=== PATIENT | female | born 1950 | race Caucasian/White ===

== ENCOUNTER 2016-12-30 10:31 | Inpatient (IN) | payer MEDICARE, OTHER ==
[~2016-12-30] VITALS: Ht 158.8 cm; Wt 84.6 kg
[2016-12-30 11:58] LABS: HEMATOCRIT 27.9 % (36.0-48.0); HEMOGLOBIN 8.5 g/dL (12-16); MCH 30.2 pg (26.0-34.0); MCHC 30.5 g/dL (31.0-37.0); MCV 99.3 fL (80.0-100.0); MEAN PLATELET VOLUME 12.1 fL (7.4-10.4); PLATELET COUNT 65 10x3/uL (130-400); RBC 2.81 10x6/uL (4.00-5.40); WBC 25.2 10x3/uL (4.8-10.8)
[2016-12-30 12:06] LABS: APTT 23.4 SECONDS (22.8-39.4); INR 1.13 (0.85-1.17); PROTIME 14.4 SECONDS (11.6-15.0)
[2016-12-30 12:16] LABS: ALBUMIN 2.3 g/dL (3.4-5.0); ALKALINE PHOSPHATASE 219 U/L (46-116); ALT (SGPT) 37 U/L (10-68); BILIRUBIN - TOTAL 0.26 mg/dL (0.2-1.3); CALC OSMOLALITY 312 mosm/kg (275-300); CALCIUM 9.3 mg/dL (8.5-10.1); CARBON DIOXIDE 23.2 mmol/L (21.0-32.0); CHLORIDE - SERUM 115 mmol/L (98-107); CREATININE - SERUM 0.9 mg/dL (0.6-1.3); GLUCOSE 85 mg/dL (74-106); POTASSIUM - SERUM 4.7 mmol/L (3.5-5.1); PROTEIN - SERUM 6.5 g/dL (6.4-8.2); SODIUM 154 mmol/L (136-145); UREA NITROGEN 37 mg/dL (7-18); eGFR NON AFRICAN AMERICAN 66 mL/min (90-120)
[2016-12-30 12:19] LABS: TROPONIN-I < 0.017 ng/mL (0.000-0.060)
[2016-12-30 12:37] LABS: EOSINOPHILS 1 % (0-7); LYMPHOCYTES 26 % (15-50); MONOCYTES 2 % (2-11); NEUTROPHILS 53 % (40-80); PLATELET ESTIMATE DECREASED; POLYCHROMASIA OCC
[2016-12-30 17:30] LABS: FERRITIN 3621 ng/mL (3-244)
--- NOTE | 2016-12-30 17:30 | NUR ---
RECEIVED TO ROOM FROM 2221 VIA . ORIENTED TO ROOM 2222 FROM , CALL LIGHT IN REACH.
[2016-12-30 17:44] LABS: LDH 463 U/L (81-234)
[2016-12-30] MEDS ORDERED: DYAZIDE 37.5/251 CAP PO (18:15)
[2016-12-30] MEDS ORDERED: PROZAC20 MG PO (18:15)
[2016-12-30] MEDS ORDERED: BENICAR HCT 40-1 TA1 PO (18:15)
--- NOTE | 2016-12-30 18:33 | NUR ---
NS INITIATED @ 50 CC/GR VIA PUMP. IS GIVEN TO PATIENT AND EXPLAINED USE WITH RETURN DEMONSTRATION. FAMILY IM ROOM. WILL CONTINUE WITH PLAN OF CARE.
[2016-12-30 18:47] VITALS: BP 119/75; BMI 33.3
[2016-12-30 20:00] VITALS: BP 128/68
[2016-12-31] VITALS (14 sets, daily range): BP systolic 98–142; BP diastolic 42–76; Ht 158.8 cm; Wt 84.6 kg
[2016-12-31 03:03] LABS: APPEARANCE CLEAR (CLEAR); BILIRUBIN NEGATIVE (NEGATIVE); COLOR YELLOW (YELLOW); GLUCOSE NEGATIVE (NEGATIVE); KETONE NEGATIVE (NEGATIVE); LEUKOCYTE ESTERASE NEGATIVE (NEGATIVE); NITRITE NEGATIVE (NEGATIVE); PROTEIN NEGATIVE (NEGATIVE); UROBILINOGEN NORMAL (NORMAL)
[2016-12-31 06:38] LABS: ALBUMIN 1.9 g/dL (3.4-5.0); ANION GAP 14.1 mmol/L (8-16); BILIRUBIN - TOTAL 0.3 mg/dL (0.2-1.3); CALCIUM 9.4 mg/dL (8.5-10.1); CARBON DIOXIDE 25.1 mmol/L (21.0-32.0); POTASSIUM - SERUM 4.2 mmol/L (3.5-5.1); PROTEIN - SERUM 6.4 g/dL (6.4-8.2)
[2016-12-31 06:54] LABS: RBC 2.33 10x6/uL (4.00-5.40); WBC 24.3 10x3/uL (4.8-10.8)
[2016-12-31 07:03] LABS: HEMATOCRIT 22.9 % (36.0-48.0); HEMOGLOBIN 7.1 g/dL (12-16); MCH 30.5 pg (26.0-34.0); MCV 98.3 fL (80.0-100.0); MEAN PLATELET VOLUME 10.8 fL (7.4-10.4); PLATELET COUNT 62 10x3/uL (130-400)
--- NOTE | 2016-12-31 07:15 | NUR ---
REPORT RECEIVED FROM CHASER TAR NURSE. CALL LIGHT IN REACH.
[2016-12-31 07:32] LABS: EOSINOPHILS 1 % (0-7); LYMPHOCYTES 26 % (15-50); MONOCYTES 4 % (2-11); NEUTROPHILS 34 % (40-80)
--- NOTE | 2016-12-31 08:00 | NUR ---
LYING IN BED,WITHOUT DISTRESS.DENIES NEEDS.CALL LIGHT IN REACH
--- NOTE | 2016-12-31 08:13 | NUR ---
ASSESSMENT COMPLETED. SCDs TO BLE. SON IN ROOM. DR. MODI PAGED ABOUT CRITICAL HGB. CALL LIGHT IN REACH. WILL CONTINUE WITH PLAN OF CARE.
[2016-12-31 08:19] LABS: PLATELET ESTIMATE DECREASED
--- NOTE | 2016-12-31 08:19 | NUR ---
SPOKE WITH DR. MODI. NEW ORDERS RECEIVED FOR PRBX. DR. STONE IN ROOM TO ASSESS PATIENT.
--- NOTE | 2016-12-31 09:17 | NUR ---
Patient Name: DOC MONZON Admission Status: ER Accout number: [id number] Admission Date: 12-30-2016 : 1950 Admission Diagnosis: Attending: SABRINA Current LOS: 1 Anticipated DC Date: 01-04-2017 Planned Disposition: Home Primary Insurance: MEDICARE A & B Discharge Planning Comments: CM MET WITH PATIENT AND SON (BELKYS) REGARDING D/C NEEDS AND MEDS. PATIENT STATED SHE LIVES ALONE AND HER SON WILL DRIVE HER HOME AT DISCHARGE. PATIENTS SON STATED THERE ARE 3 STEPS W/O RAILS TO ENTER HOME AND NO STAIRS INSIDE. PATIENT IS INDEPENDENT WITH HER CARE AND HAS NO DME AT HOME. PATIENTS PCP IS DR. LIMON AND PHARMACY IS [facility]. PATIENT HAS NOT HAD HOME HEALTH NOR DOES SHE THINK SHE NEEDS IT. CM WILL CONTINUE TO FOLLOW PATIENT WITH D/C NEEDS AND PLANS. PCP DR. BRAXTON [facility]- [phone] BELKYS (SON) [phone] OR [phone] Ground Crewman Aircraft Support: Tonia Wilcox Is the patient Alert and Oriented? Yes 0 * How many steps to enter\exit or inside your home? 3 W/O RAIL 0 * PCP DR. LIMON 0 * Pharmacy [facility] 0 * Preadmission Environment Home Alone 0 * ADLs Independent 0 * Equipment None 0 * List name and contact numbers for known caregivers / representatives who currently or will assist patient after discharge: BELKYS MONZON (SON) [phone] 0 * Community resources currently utilized None 0 * Additional services required to return to the preadmission environment? Yes 0 * Can the patient safely return to the preadmission environment? Yes 0 * Has this patient been hospitalized within the prior 30 days at any hospital? Yes 0 Grand Total: 0
--- NOTE | 2016-12-31 10:20 | NUR ---
NO NEEDS VOICED AT THIS TIME. CALL LIGHT IN REACH.
--- NOTE | 2016-12-31 11:40 | NUR ---
BLAYNE GOSS. CONSENT FOR BLOOD SIGNED AND WITNESSED.
--- NOTE | 2016-12-31 12:20 | NUR ---
PRBC UNIT 1 INITIATED PER JUAN CARLOS LARA. VS STANL. IV SITE PATENT. SONS IN ROOM AT THIS TIME. CALL LIGHT IN REACH. NO NEEDS VOICED.
--- NOTE | 2016-12-31 15:15 | NUR ---
1ST UNIT OF BLOOD COMPLETED. VSS. WAITING ON MRI TO GET COMPLETED SO 2ND UNIT CAN GET STARTED.
--- NOTE | 2016-12-31 17:00 | NUR ---
TO MRI VIA WC. WILL FINISH IV ABX AND START 2ND UNIT OF BLOOD WHEN SHE RETURNS.
--- NOTE | 2016-12-31 18:54 | NUR ---
NO CHANGES IN INITIAL ASSESSMENT. CALL LIGHT IN REACH. WILL CONTINUE WITH PLAN OF CARE.
--- NOTE | 2016-12-31 20:40 | NUR ---
IV TO RIGHT AC OUT WITH TIP INTACT. RESITED TO RIGHT HAND WITH 22 GA X1 STICK. PRBC UNIT 2 INITIATED @ 125 CC/HR VIA PUMP.
--- NOTE | 2016-12-31 23:47 | NUR ---
PATIENT FINISHED SECOND UNIT OF BLOOD FOR THE DAY. FEVER STARTED AT 100.1 AND 650MG OF TYLENOL GIVEN. ENDING TEMP WAS 99.9 WITH THE HIGHEST TEMP BEING 100.5. COOL, WET CLOTH WAS APPLIED TO THE FOREHEAD AND ICE PACKS TO THE GROIN AREA. LUNGS REMAINED CLEAR WITH NO OTHER S/S OF REACTION TO TRANSFUSION. PRBC'S INFUSED AT A RATE OF 100mL/hr. SON AT BEDSIDE. NO NEEDS WERE NOTED BY THE PAITENT OR FAMILY.
[2017-01-01] VITALS: BP 115/73
--- NOTE | 2017-01-01 03:44 | NUR ---
PATIENT SLEEPING SUPINE IN BED. HOB 30 DEGREES. RR EVEN AND UNLABORED. 0 S/S OF DISTRESS. SCD'S IN ROOM BUT OFF. SRX2. FAMILY AT BEDSIDE.
[2017-01-01 04:00] VITALS: BP 115/70
[2017-01-01 05:46] LABS: BASOPHILS 2.6 % (0-2); EOSINOPHILS 1.4 % (0-7); HEMATOCRIT 29.6 % (36.0-48.0); HEMOGLOBIN 9.5 g/dL (12-16); IMMATURE GRANULOCYTES 18.4 % (0-5); LYMPHOCYTES 28.1 % (15-50); MCH 29.6 pg (26.0-34.0); MCHC 32.1 g/dL (31.0-37.0); MCV 92.2 fL (80.0-100.0); MEAN PLATELET VOLUME 10.4 fL (7.4-10.4); MONOCYTES 9.9 % (2-11); NEUTROPHILS 39.6 % (40-80); PLATELET COUNT 54 10x3/uL (130-400); RBC 3.21 10x6/uL (4.00-5.40); RDW 19.5 % (11.5-14.5); WBC 23.1 10x3/uL (4.8-10.8)
[2017-01-01 06:31] LABS: ANION GAP 15.9 mmol/L (8-16); BILIRUBIN - TOTAL 0.6 mg/dL (0.2-1.3); CALCIUM 9.5 mg/dL (8.5-10.1); CARBON DIOXIDE 24.2 mmol/L (21.0-32.0); POTASSIUM - SERUM 4.1 mmol/L (3.5-5.1); PROTEIN - SERUM 6.7 g/dL (6.4-8.2)
--- NOTE | 2017-01-01 07:10 | NUR ---
REPORT RECEIVED FROM HYDRANT SETTER NURSE. CALL DIANNE IN REACH.
[2017-01-01 08:17] VITALS: BP 124/70
--- NOTE | 2017-01-01 09:20 | NUR ---
DR. HALEY IN ROOM TO ASSESS AND SPEAK WITH PATIENT.
--- NOTE | 2017-01-01 10:01 | NUR ---
ASSESSMENT COMPLETED. AM MEDS ADMINISTERED. SCDs TO BLE. SON AT BEDSIDE. CALL LIGHT IN REACH. WILL CONTINUE WITH PLAN OF CARE.
[2017-01-01 11:45] VITALS: BP 146/86
--- NOTE | 2017-01-01 12:55 | NUR ---
SONS IN ROOM. PATIENT DENIES PAIN OR NEEDS AT THIS TIME. CALL LIGHT IN REACH.
--- NOTE | 2017-01-01 13:05 | NUR ---
EXPLAINED TO SON ABOUT PLAN OF CARE. VERBALIZED UNDERSTANDING.
--- NOTE | 2017-01-01 15:04 | NUR ---
PATIENT IV TUBING DISCONNECTED SO PATIENT CAN GET IN SHOWER AT THIS TIME. NO COMPLAINTS. O2 ON FAMILY AND CERTIFIED RETINAL ANGIOGRAPHER AT BEDSIDE.
[2017-01-01 15:35] VITALS: BP 139/77
--- NOTE | 2017-01-01 17:38 | NUR ---
VIBRAMYCIN IVPB. SON AT BEDSIDE. CALL LIGHT IN REACH.
--- NOTE | 2017-01-01 18:47 | NUR ---
NO CHANGES IN INITIAL ASSESSMENT. SCDs TO BLE. SON IN ROOM. WILL CONTINUE WITH PLAN OF CARE.
[2017-01-01 20:00] VITALS: BP 141/83
[2017-01-02] VITALS: BP 138/81
[2017-01-02 04:00] VITALS: BP 146/84
--- NOTE | 2017-01-02 05:14 | NUR ---
SLEEPING AT THIS TIME. RESPIRATIONS EVEN AND NON LABORED. CALL LIGHT IN REACH, WILL CONTINUE WITH PLAN OF CARE.
[2017-01-02 05:49] LABS: BASOPHILS 1.7 % (0-2); EOSINOPHILS 0.9 % (0-7); HEMATOCRIT 31.6 % (36.0-48.0); IMMATURE GRANULOCYTES 14.5 % (0-5); LYMPHOCYTES 26.6 % (15-50); MCH 29.4 pg (26.0-34.0); MCHC 31.6 g/dL (31.0-37.0); MCV 92.9 fL (80.0-100.0); MEAN PLATELET VOLUME 10.5 fL (7.4-10.4); MONOCYTES 9.8 % (2-11); NEUTROPHILS 46.5 % (40-80); PLATELET COUNT 59 10x3/uL (130-400); RDW 18.8 % (11.5-14.5); WBC 25.3 10x3/uL (4.8-10.8)
[2017-01-02 06:21] LABS: ANION GAP 14.6 mmol/L (8-16); BILIRUBIN - TOTAL 0.71 mg/dL (0.2-1.3); CALCIUM 9.8 mg/dL (8.5-10.1); CARBON DIOXIDE 25.5 mmol/L (21.0-32.0); CREATININE - SERUM 0.9 mg/dL (0.6-1.3); POTASSIUM - SERUM 4.1 mmol/L (3.5-5.1); PROTEIN - SERUM 6.9 g/dL (6.4-8.2)
--- NOTE | 2017-01-02 07:00 | NUR ---
REPORT RECIEVED ASSUMED CARE. PATIENT IN BED WITH IV INTACT. RIGHT HAND WITH SMALL AMOUNT OF EDEMA. PATIENT STATED HER IV DOESNT HURT AND HER HAND HAS BEEN SWOLLEN. EXPLAINED TO PATIENT THAT I WOULD KEEP AN EYE ON IT AND IF I SAW IT WAS GETTING WORSE I WOULD HAVE TO RESTART IT. VERBALIZED UNDERSTANDING. CALL LIGHT WITHIN REACH. FAMILY AT BEDSIDE.
[2017-01-02 08:55] VITALS: BP 134/69
--- NOTE | 2017-01-02 09:00 | NUR ---
PATIENT IV INTACT. HAND WITH SOME EDEMA STILL BUT NOT ANY WORSE THAN BEFORE. WILL CONTINUE TO MONITOR. CALL LIGHT WITHIN REACH. FAMILY AT BEDSIDE.
--- NOTE | 2017-01-02 12:30 | NUR ---
PATIENT SITTING UP IN BED EATING WITH NO COMPLAINTS AT THIS TIME. IV INTACT. CALL LIGHT WITHIN REACH.
[2017-01-02 12:48] VITALS: BP 129/76
--- NOTE | 2017-01-02 15:01 | NUR ---
PATIENT RECIEVED MORPHINE 2 MG IVP SLOWLY OVER 2 MINUTES FOR PAIN. IV INTACT. CALL LIGHT WITHIN REACH.
[2017-01-02 17:35] VITALS: BP 118/79; BP 119/73
--- NOTE | 2017-01-02 17:50 | NUR ---
PATIENT FEELING ANXIOUS. HR 129. ATIVAN GIVEN PO AT THIS TIME. WILL CONTINUE TO MONITOR. TELE MONITOR ST AT 129. CALL LIGHT WITHIN REACH. FAMILY AT BEDSIDE.
--- NOTE | 2017-01-02 18:27 | NUR ---
PATIENT IN BED WITH IV INTACT. NO COMPLAINTS AT THIS TIME. FAMILY AT BEDSIDE. BSCDS ON AND WORKING. CALL LIGHT WITHIN REACH.
[2017-01-02 20:00] VITALS: BP 122/70
[2017-01-03] VITALS: BP 133/62
--- NOTE | 2017-01-03 02:00 | NUR ---
PT IN BED WITH NO DISTRESS. RESPIRATIONS EVEN AND UNLABORED. SIDE RAILS X 2. BED LOW. CALL LIGHT IN REACH.
[2017-01-03 04:00] VITALS: BP 123/75
[2017-01-03 06:26] LABS: BASOPHILS 0.8 % (0-2); EOSINOPHILS 0.8 % (0-7); HEMATOCRIT 30.6 % (36.0-48.0); HEMOGLOBIN 9.7 g/dL (12-16); IMMATURE GRANULOCYTES 11.1 % (0-5); LYMPHOCYTES 23.4 % (15-50); MCH 29.6 pg (26.0-34.0); MCHC 31.7 g/dL (31.0-37.0); MCV 93.3 fL (80.0-100.0); MEAN PLATELET VOLUME 10.6 fL (7.4-10.4); MONOCYTES 10.4 % (2-11); NEUTROPHILS 53.5 % (40-80); PLATELET COUNT 58 10x3/uL (130-400); RBC 3.28 10x6/uL (4.00-5.40); WBC 24.7 10x3/uL (4.8-10.8)
[2017-01-03 06:46] LABS: ALBUMIN 1.9 g/dL (3.4-5.0); ANION GAP 13.9 mmol/L (8-16); BILIRUBIN - TOTAL 0.82 mg/dL (0.2-1.3); CALCIUM 9.4 mg/dL (8.5-10.1); CARBON DIOXIDE 25.5 mmol/L (21.0-32.0); CREATININE - SERUM 0.9 mg/dL (0.6-1.3); POTASSIUM - SERUM 4.4 mmol/L (3.5-5.1); PROTEIN - SERUM 5.8 g/dL (6.4-8.2)
--- NOTE | 2017-01-03 08:00 | NUR ---
ASSESSMENT PER FLOW SHEET.PT WITHOUT DISTRESS.NPO FOR PROCEDURE TODAY.
[2017-01-03 08:33] VITALS: BP 103/71
--- NOTE | 2017-01-03 11:24 | NUR ---
TO IR VIA BED
[2017-01-03 13:11] VITALS: BP 116/77
[2017-01-03 16:14] VITALS: BP 114/71
--- NOTE | 2017-01-03 18:24 | NUR ---
REMAINS WITHOUT DISTRESS.CONT PLAN OF CARE
[2017-01-03 19:00] VITALS: BP 115/64
[2017-01-04] VITALS: BP 115/66
--- NOTE | 2017-01-04 03:10 | NUR ---
REC'D PATIENT SITTING UP IN BED. FAMILY WAS AT BEDSIDE. PATIENT ALERT AND ORIENTED X4. DENIED PAIN AT THIS TIME. DENIED FURTHER NEEDS AT THIS TIME. INTRUCTED TO CALL IF NEEDED ANYTHING VERBALIZED UNDERSTANDING. BED LOW, LOCKED, CALL LIGHT IN REACH. NO DISTRESS NOTED.
[2017-01-04 04:00] VITALS: BP 115/63
--- NOTE | 2017-01-04 04:15 | NUR ---
PATIENT SLEEPING WITH NO DISTRESS NOTED. AGREE WITH REDIPPER ASSESSMENT.
--- NOTE | 2017-01-04 05:44 | NUR ---
PATIENT IS RESTING IN BED. NO DISTRESS NOTED. SON IS AT BESIDE. DENIED PAIN AT THIS TIME. DENIED FURTHER NEEDS. INSTRUCTED TO CALL IF NEEDED ANYTHING. BED LOW, LOCKED, CALL LIGHT IN REACH.
[2017-01-04 06:04] LABS: BASOPHILS 0.6 % (0-2); EOSINOPHILS 0.9 % (0-7); HEMATOCRIT 29.2 % (36.0-48.0); HEMOGLOBIN 9.1 g/dL (12-16); IMMATURE GRANULOCYTES 10.4 % (0-5); LYMPHOCYTES 20.8 % (15-50); MCH 29.3 pg (26.0-34.0); MCHC 31.2 g/dL (31.0-37.0); MCV 93.9 fL (80.0-100.0); MEAN PLATELET VOLUME 10.2 fL (7.4-10.4); MONOCYTES 10.1 % (2-11); NEUTROPHILS 57.2 % (40-80); PLATELET COUNT 51 10x3/uL (130-400); RBC 3.11 10x6/uL (4.00-5.40); RDW 18.2 % (11.5-14.5); WBC 20.2 10x3/uL (4.8-10.8)
[2017-01-04 06:47] LABS: ALBUMIN 1.5 g/dL (3.4-5.0); ANION GAP 16.6 mmol/L (8-16); BILIRUBIN - TOTAL 0.7 mg/dL (0.2-1.3); CARBON DIOXIDE 21.6 mmol/L (21.0-32.0); POTASSIUM - SERUM 4.2 mmol/L (3.5-5.1); PROTEIN - SERUM 6.4 g/dL (6.4-8.2)
--- NOTE | 2017-01-04 07:35 | NUR ---
ASSESSMENT PER FLOW SHEET.PT WITHOUT DISTRESS.CALL LIGHT IN REACH.FAMILY AT BEDSIDE.
--- NOTE | 2017-01-04 08:40 | NUR ---
AM MEDS.BP MEDS HELD PER . IS SEEING PT AT PRESENT.CALL LIGHT IN REACH
[2017-01-04 09:02] VITALS: BP 112/58
--- NOTE | 2017-01-04 11:08 | NUR ---
AMBULATING WITH PT IN HALLS.WITHOUT DISTRESS.
--- NOTE | 2017-01-04 11:12 | NUR ---
02 SATS 95% ON ROOM AIR AFTER AMBULATION.PT UP SITTING IN CHAIR.MONITOR
--- NOTE | 2017-01-04 12:03 | NUR ---
UP TO SHOWER.TOLERATING WELL
[2017-01-04 12:17] VITALS: BP 114/62
--- NOTE | 2017-01-04 12:39 | NUR ---
NUTRITION MONITORING & EVAL CHART REVIEWED, PT VISIT. TOLERATING REG DIET. 100% INTAKE BREAKFAST. WILL CONTINUE TO PROVIDE DIET, HONOR FOOD PREFERENCES. RD FOLLOWING
[2017-01-04 13:16] LABS: EHRLICHIA CHAFF IGG Negative (Neg:<1:64); EHRLICHIA CHAFF IGM Negative (Neg:<1:20); HGE IGG TITER Negative (Neg:<1:64); HGE IGM TITER Negative (Neg:<1:20)
--- NOTE | 2017-01-04 14:04 | NUR ---
REMAINS WITHOUT DISTRESS.CALL LIGHT IN REACH
[2017-01-04 14:24] LABS: CA 27-29 45.3 U/mL (0.0-38.6)
[2017-01-04 14:58] VITALS: BP 121/72
--- NOTE | 2017-01-04 18:33 | NUR ---
WITHOUT NEEDS,WITHOUT DISTRESS.CONT PLAN OF CARE
--- NOTE | 2017-01-04 20:00 | NUR ---
ASSESSMENT PER FLOWSHEET. IV PATENT LEFT FOREARM OF NS AT 50CC'S/HR SITE CLEAR. BANDAIDE DRESSING TO BONE MARROW SITE LEFT HIP. C/D/I. SCD'S ON. SR UP X2 CALL LIGHT WITHIN REACH.
[2017-01-04 21:19] VITALS: BP 102/56
--- NOTE | 2017-01-04 22:00 | NUR ---
EYES CLOSED RESPIRATIONS WITH EASE AND UNLABORED.
[2017-01-04 22:07] LABS: RMSF IGM 0.39 index (0.00-0.89)
[2017-01-05] VITALS (22 sets, daily range): BP systolic 103–130; BP diastolic 54–73
--- NOTE | 2017-01-05 01:24 | NUR ---
EYES CLOSED RESPIRATIONS WITH EASE AND UNLABORED. DENIES NEEDS. SR UP X2 CALL LIGHT WITHIN REACH HOB UP 40 DEGREES.
[2017-01-05 06:09] LABS: ALBUMIN 1.4 g/dL (3.4-5.0); ALKALINE PHOSPHATASE 153 U/L (46-116); ALT (SGPT) 17 U/L (10-68); CALC OSMOLALITY 272 mosm/kg (275-300); CARBON DIOXIDE 23.6 mmol/L (21.0-32.0); CHLORIDE - SERUM 101 mmol/L (98-107); GLUCOSE 95 mg/dL (74-106); POTASSIUM - SERUM 3.9 mmol/L (3.5-5.1); PROTEIN - SERUM 5.9 g/dL (6.4-8.2); SODIUM 135 mmol/L (136-145); UREA NITROGEN 22 mg/dL (7-18); eGFR NON AFRICAN AMERICAN 88 mL/min (90-120)
[2017-01-05 06:11] LABS: CREATININE - SERUM 0.7 mg/dL (0.6-1.3)
[2017-01-05 06:59] LABS: BASOPHILS 0.6 % (0-2); EOSINOPHILS 1.3 % (0-7); HEMATOCRIT 26.3 % (36.0-48.0); HEMOGLOBIN 8.2 g/dL (12-16); IMMATURE GRANULOCYTES 12.1 % (0-5); LYMPHOCYTES 18.1 % (15-50); MCHC 31.2 g/dL (31.0-37.0); MCV 92.9 fL (80.0-100.0); MEAN PLATELET VOLUME 10.5 fL (7.4-10.4); MONOCYTES 8.9 % (2-11); RBC 2.83 10x6/uL (4.00-5.40); RDW 17.8 % (11.5-14.5); WBC 18.2 10x3/uL (4.8-10.8)
[2017-01-05 07:03] LABS: PLATELET COUNT 44 10x3/uL (130-400)
--- NOTE | 2017-01-05 07:15 | NUR ---
REPORT RECEIVED FROM SUPERINTENDENT MEASUREMENT NURSE. CALL LIGHT IN REACH.
--- NOTE | 2017-01-05 07:23 | NUR ---
AWAKE AND ALERT AT THIS TIME. RESPIRATIONS EVEN AND NON LABORED. BATTERIES TO HEART MONITOR CHANGED AT THIS TIME. PT DENIES NEEDS AT CURRENT TIME. SRX2 WITH BED IN LOWEST POSITION AND WHEELS LOCKED. CALL LIGHT IN REACH, WILL CONTINUE WITH PLAN OF CARE.
--- NOTE | 2017-01-05 08:06 | EC ---
PATIENT:DOC MONZON DATE OF SERVICE: 12/30/16 SEX: F MEDICAL RECORD: [id number] DATE OF : [birth year] LOCATION:[id number] AGE OF PATIENT: 66 ADMISSION DATE: 12/30/16 REFERRING PHYSICIAN: INTERPRETING PHYSICIAN: LAURA BOWMAN MD ECHOCARDIOGRAM REPORT ECHO CHARGES 4 ECHO COMPLETE CLINICAL DIAGNOSIS: POSSIBLE ENDOCARDITIS ECHOCARDIOGRAPHIC MEASUREMENTS (adult normal given) AC root (d.<3.7cm) 3.4 LV Septum d (<1.2 cm> 1.2 Valve Excursion 2.0 LV Septum (systole) 1.7 Left Atria (s.<4.0cm> 3.3 LVPW d(<1.2cm) 1.2 RV (d.<2.3cm) 2.6 LVPW (sytole) 1.8 LV diastole(<5.6CM) 5.5 MV E-F(>70mm/sec) LV systole 3.3 LVOT Diameter 2.0 MV exc.(>10mm) Est.ejection fraction (50-75%) Pericardial Effusion N DOPPLER: LVIT A 80.0 E 60.0 LA RVSP 28.3 LVOT 149 AOP1/2T Asc. Ao 189 RVOT 69.0 RA PA 115 AV Gradient Peak 14.3 AV Mean 7.0 AV Area 2.3 MV Gradient Peak 3.6 MV Mean 1.6 MV Area COMMENTS: Data Warehouse Architect: Dallin BUTCHEROE Shift Supervisor Film Processing:Ye Quispe TAPE# PACS DATE OF SERVICE: 12/31/2016 Echocardiogram FINDINGS: 1. Left ventricular chamber size is within normal limits. Left ventricular systolic function is normal. Overall ejection fraction estimated at 60%. 2. Left atrium, right atrium, and right ventricular chamber sizes are within normal limits. 3. Valvular structures have normal structure and motion. ECHOCARDIOGRAM REPORT [id number] DOC MONZON 4. Doppler interrogation reveals no significant valvular insufficiency or stenosis and pulmonary systolic pressure is normal estimated at 28 mmHg. 5. No evidence of pericardial effusion or left ventricular thrombus. TRANSINT:[id number] Voice Confirmation ID: [id number] DOCUMENT ID: [id number] LAURA BOWMAN MD at 0806 CC: [id number] DICTATION DATE: 12/31/16 1442 CHOCOLATE REFINING ROLLER: 12/31/16 1526 ADM IN [facility] [address] [id number]
--- NOTE | 2017-01-05 08:07 | NUR ---
ASSESSMENT COMPLETED. TYLENOL PO PER C/O INCISIONAL PAIN ADMINISTERED WITH AM MEDS. SCDs TO BLE. CALL LIGHT IN REACH. WILL CONTINUE WITH PLAN OF CARE.
--- NOTE | 2017-01-05 10:07 | NUR ---
STATES PAIN IS NOW A 0. FLORAJEN PO. NPO FOR CT OF ABD AND CHEST WITH CONTRAST. SON AT BEDSIDE. CALL LIGHT IN REACH.
--- NOTE | 2017-01-05 12:32 | NUR ---
IV TUBING CHANGED PER HOSPITAL PROTOCOL.
--- NOTE | 2017-01-05 13:20 | NUR ---
SPOKE TO DR. HALEY ABOUT H&H LEVEL. NEW ORDERS RECEIVED.
--- NOTE | 2017-01-05 14:06 | NUR ---
EXPLAINED TO PATIENT AND SON THAT PATIENT HAS TO GET 2 UNITS OF BLOOD TODAY FOR H&H. VERBALIZED UNDERSTANDING.
--- NOTE | 2017-01-05 16:10 | NUR ---
PRBC INITIATED PER JUAN CARLOS LARA. VSS AT THIS TIME. FAMILY IN ROOM. WILL CONTINUE TO MONITOR VS.
--- NOTE | 2017-01-05 16:26 | NUR ---
INCREASED PRBC RATE FROM 100 CC/HR TO 150 CC/HR. TOLERATING WELL AT THIS TIME.
--- NOTE | 2017-01-05 18:35 | NUR ---
UNIT OF BLOOD COMPLETED. NO CHANGES IN INITIAL ASSESSMENT. CALL LIGHT IN REACH. SCDs TO BLE. SON AT BEDSIDE. WILL CONTINUE WITH PLAN OF CARE.
--- NOTE | 2017-01-05 18:50 | NUR ---
2ND UNIT OF BLOOD INITIATED @ 125 CC/HR VIA PUMP PER JUAN CAROLS BRIZUELA.
--- NOTE | 2017-01-05 20:00 | NUR ---
ASSESSMENT PER FLOWSHEET. SITTING UPRIGHT IN BED RECEIVING UPDRAFT TX. RELATIVE AT BEDSIDE. IV PATENT LEFT HAND OF SECOND UNIT OF PRBC'S INFUSING AT 125CC'S/HR MONITORING VITALSIGNS. TELM. SHOWS HR [address]
--- NOTE | 2017-01-05 21:00 | NUR ---
MONITORING BLOOD TRANSFUSION NO REACTION SEEN. FAMILY MEMBER AT BEDSIDE.
--- NOTE | 2017-01-05 21:56 | NUR ---
REQUESTING NERVE PILL TO HELP WITH REST. ATIVAN 1MG PO GIVEN FOR REST. UP TO BR VOIDS WELL.
--- NOTE | 2017-01-05 23:00 | NUR ---
BLOOD COMPLETED NO REACTIION NS AT KVO TO FLUSH TUBING.
[2017-01-06] VITALS: BP 112/67; BP 112/68
--- NOTE | 2017-01-06 00:30 | NUR ---
REMOVED BLOOD TUBING CONTINUED REGULAR IV FLUIDS OF NS INFUSIING AT 50CC'S/HR.
--- NOTE | 2017-01-06 01:30 | NUR ---
EYES CLOSED RESPIRATIONS WITH EASE AND UNLABORED.
--- NOTE | 2017-01-06 03:54 | NUR ---
NO CHANGES IN ASSESSMENT RESTING QUIETLY.
[2017-01-06 04:00] VITALS: BP 135/77
--- NOTE | 2017-01-06 04:55 | NUR ---
EYES CLOSED RESPIRATIONS WITH EASE AND UNLABORED.
--- NOTE | 2017-01-06 07:15 | NUR ---
REPORT RECEIVED FROM SPENT GRAIN DRYER NURSE. CALL LIGHT IN REACH.
[2017-01-06 07:27] LABS: BASOPHILS 1.7 % (0-2); EOSINOPHILS 1.8 % (0-7); IMMATURE GRANULOCYTES 17.3 % (0-5); MCH 29.8 pg (26.0-34.0); MCHC 32.5 g/dL (31.0-37.0); MCV 91.8 fL (80.0-100.0); MEAN PLATELET VOLUME 10.8 fL (7.4-10.4); MONOCYTES 7.5 % (2-11); NEUTROPHILS 53.7 % (40-80); RBC 3.76 10x6/uL (4.00-5.40)
[2017-01-06 07:28] LABS: HEMATOCRIT 34.5 % (36.0-48.0); HEMOGLOBIN 11.2 g/dL (12-16)
[2017-01-06 07:29] LABS: PLATELET COUNT 40 10x3/uL (130-400)
[2017-01-06 07:46] LABS: ALBUMIN 1.6 g/dL (3.4-5.0); ALKALINE PHOSPHATASE 270 U/L (46-116); BILIRUBIN - TOTAL 0.52 mg/dL (0.2-1.3); CALC OSMOLALITY 278 mosm/kg (275-300); CALCIUM 9.6 mg/dL (8.5-10.1); CARBON DIOXIDE 24.2 mmol/L (21.0-32.0); CHLORIDE - SERUM 106 mmol/L (98-107); CREATININE - SERUM 0.7 mg/dL (0.6-1.3); GLUCOSE 80 mg/dL (74-106); POTASSIUM - SERUM 4.1 mmol/L (3.5-5.1); PROTEIN - SERUM 5.3 g/dL (6.4-8.2); SODIUM 139 mmol/L (136-145); UREA NITROGEN 18 mg/dL (7-18); eGFR NON AFRICAN AMERICAN 88 mL/min (90-120)
[2017-01-06 07:47] LABS: ALT (SGPT) 26 U/L (10-68)
[2017-01-06 08:21] VITALS: BP 133/70
[2017-01-06 09:17] LABS: SPE - A/G RATIO 0.7 (0.7-1.7); SPE - ALBUMIN 2.3 g/dL (2.9-4.4); SPE - ALPHA-1 GLOBULIN 0.5 g/dL (0.0-0.4); SPE - M-SPIKE Not Observed g/dL (Not Observed); SPE - TOTAL PROTEIN 5.8 g/dL (6.0-8.5)
--- NOTE | 2017-01-06 09:56 | NUR ---
ASSESSMENT COMPLETED. NORCO PO WITH AM MEDS ADMINISTERED. SCDs TO BLE. CALL LIGHT IN REACH. SONS IN ROOM. WILL CONTINUE WITH PLAN OF CARE.
--- NOTE | 2017-01-06 10:02 | NUR ---
SON AT BEDSIDE. DENIES NEEDS AT THIS TIME. RESPIRATIONS EVEN AND NON LABORED. CALL LIGHT IN REACH, WILL CONTINUE WITH PLAN OF CARE.
--- NOTE | 2017-01-06 12:00 | NUR ---
EATING LUNCH AT THIS TIME. DENIES NEED. SON AT BEDSIDE. CALL LIGHT IN REACH.
[2017-01-06 12:26] VITALS: BP 120/66
--- NOTE | 2017-01-06 13:31 | NUR ---
SPOKE WITH LAB ABOUT PLATELETS. STATES THEY WILL BE READY SOON.
[2017-01-06] MEDS ORDERED: PROTONIX40 MG PO (14:00)
[2017-01-06 14:34] VITALS: BP 120/66
--- NOTE | 2017-01-06 14:35 | NUR ---
PLATELET APHERESIS INITIATED @ 999 CC/HR VIA PUMP PER JUAN CARLOS BRIZUELA.
[2017-01-06 14:48] VITALS: BP 122/88
--- NOTE | 2017-01-06 14:48 | NUR ---
PLATELETS COMPLETED. VSS. IV DC'D WITH TIP INTACT.
--- NOTE | 2017-01-06 14:48 | NUR ---
CM REASSESSMENT NOTE: PATIENT IS DISCHARGING HOME TODAY-SON DRIVING HER. PATIENT STATED SHE HAS NO NEEDS.
--- NOTE | 2017-01-06 15:40 | NUR ---
DC INSTRUCTIONS EXPLAINED TO PATIENT AND SON. BOTH VERBALIZED UNDERSTANDING. DC'D TO VEHICLE VIA WC.
[2017-01-13 09:18] LABS: F. TULARENSIS - IGG Negative (()); F. TULARENSIS - IGM Negative (())
== END 2017-01-06 15:40 | disposition home or self-care (01) | DRG 478 ==
LOC: D.ER 10:31 → D.MS 15:02
PROVIDERS: Emergency Medicine; Family Medicine; Internal Medicine Hematology & Oncology; Radiology Diagnostic Radiology; Student in an Organized Health Care Education/Training Program; ADMIT Family Medicine
PROC: 07DR3ZX Extraction of Iliac Bone Marrow, Percutaneous Approach, Diagnostic (ICD-10-PCS; principal; 2017-01-03 11:31)
PROC: 0QB13ZX Excision of Sacrum, Percutaneous Approach, Diagnostic (ICD-10-PCS; 2017-01-03 11:31)
DX: C79.51 Secondary malignant neoplasm of bone (principal); E87.0 Hyperosmolality and hypernatremia; E44.0 Moderate protein-calorie malnutrition; D69.6 Thrombocytopenia, unspecified; D64.9 Anemia, unspecified; R55 Syncope and collapse; E78.5 Hyperlipidemia, unspecified; I10 Essential (primary) hypertension; Z85.3 Personal history of malignant neoplasm of breast; G47.33 Obstructive sleep apnea (adult) (pediatric); E83.39 Other disorders of phosphorus metabolism; R00.0 Tachycardia, unspecified; R09.02 Hypoxemia

== ENCOUNTER 2017-02-14 14:39 | Inpatient (IN) | payer MEDICARE, OTHER ==
[~2017-02-14] VITALS: Ht 157.5 cm; Wt 76.2 kg
[~2017-02-14 14:39] MED LIST: BENICAR HCT 40-1 TA1 PO; DYAZIDE 37.5/251 CAP PO; PROTONIX40 MG PO; PROZAC20 MG PO
[2017-02-14 15:24] VITALS: BP 109/59; BMI 30.8
[2017-02-14] MEDS ORDERED: VITAMIN D31000 UNI2 PO (15:51)
[2017-02-14] MEDS ORDERED: VITAMIN C250 MG PO (15:51)
[2017-02-14] MEDS ORDERED: ATIVAN0.5 MG PO (15:52)
[2017-02-14 16:29] LABS: HEMATOCRIT 26.5 % (36.0-48.0); HEMOGLOBIN 8.7 g/dL (12-16); MCH 30.1 pg (26.0-34.0); MCHC 32.8 g/dL (31.0-37.0); MCV 91.7 fL (80.0-100.0); MEAN PLATELET VOLUME 9.4 fL (7.4-10.4); RBC 2.89 10x6/uL (4.00-5.40); RDW 18.9 % (11.5-14.5); WBC 25.4 10x3/uL (4.8-10.8)
[2017-02-14 16:31] LABS: FIBRINOGEN 740 mg/dL (239-481)
[2017-02-14 16:32] LABS: INR 1.01 (0.85-1.17); PROTIME 13.2 SECONDS (11.6-15.0)
[2017-02-14 16:33] LABS: PLATELET COUNT 16 10x3/uL (130-400)
[2017-02-14 16:44] LABS: ALBUMIN 2.9 g/dL (3.4-5.0); ANION GAP 18.9 mmol/L (8-16); BILIRUBIN - TOTAL 0.91 mg/dL (0.2-1.3); CALCIUM 8.6 mg/dL (8.5-10.1); CARBON DIOXIDE 23.3 mmol/L (21.0-32.0); CREATININE - SERUM 1.6 mg/dL (0.6-1.3); POTASSIUM - SERUM 3.2 mmol/L (3.5-5.1); PROTEIN - SERUM 6.7 g/dL (6.4-8.2)
[2017-02-14 17:17] LABS: LYMPHOCYTES 33 % (15-50); MONOCYTES 4 % (2-11); NEUTROPHILS 39 % (40-80); PLATELET ESTIMATE DECREASED
[2017-02-14 17:19] LABS: POLYCHROMASIA 1+
[2017-02-14 18:47] LABS: APTT < 18.1 SECONDS (22.8-39.4)
[2017-02-14 20:00] VITALS: BP 107/67
--- NOTE | 2017-02-14 22:02 | NUR ---
PATIENT RESTING IN BED. NO SIGNS OF DISTRESS NOTED. ALERT AND ORIENTED. PATIENT SON REQUESTED PATIENT RECEIVE ATIVAN AT BED TIME. INFORMED HIM THAT ATIVAN WAS NOT ORDERED. HE AND PT AGREED THAT SHE DID NOT NEED THE PATIENT TONIGHT. SCHEDULED MEDS GIVEN. SHIFT ASSESSMENT COMPLETED. DENIES ANY NEEDS AT THIS TIME. BED LOW. CALL LIGHT IN REACH
[2017-02-15] VITALS (7 sets, daily range): BP systolic 105–123; BP diastolic 53–78; Ht 157.5 cm; Wt 76.2 kg
[2017-02-15 04:14] LABS: APPEARANCE CLOUDY (CLEAR); COLOR YELLOW (YELLOW)
[2017-02-15 04:15] LABS: BILIRUBIN NEGATIVE (NEGATIVE); GLUCOSE NEGATIVE (NEGATIVE); KETONE NEGATIVE (NEGATIVE); LEUKOCYTE ESTERASE 1+ (NEGATIVE); NITRITE NEGATIVE (NEGATIVE); PROTEIN NEGATIVE (NEGATIVE); SPECIFIC GRAVITY 1.015 (1.005-1.020); UROBILINOGEN NORMAL (NORMAL)
[2017-02-15 04:16] LABS: AMORPHOUS SEDIMENT <1+ /lpf (NONE SEEN); BACTERIA MODERATE /hpf (NONE SEEN); EPITHELIAL CELLS 0-5 /hpf (0-5); RED CELLS - URINE 0-5 /hpf (0-5)
[2017-02-15 05:21] LABS: BASOPHILS 5.3 % (0-2); EOSINOPHILS 1.9 % (0-7); HEMATOCRIT 25.3 % (36.0-48.0); HEMOGLOBIN 8.2 g/dL (12-16); IMMATURE GRANULOCYTES 15.7 % (0-5); LYMPHOCYTES 40.9 % (15-50); MCH 29.9 pg (26.0-34.0); MCHC 32.4 g/dL (31.0-37.0); MCV 92.3 fL (80.0-100.0); MEAN PLATELET VOLUME 10.9 fL (7.4-10.4); MONOCYTES 9.7 % (2-11); NEUTROPHILS 26.5 % (40-80); PLATELET COUNT 19 10x3/uL (130-400); RBC 2.74 10x6/uL (4.00-5.40); RDW 19.3 % (11.5-14.5)
--- NOTE | 2017-02-15 05:22 | NUR ---
CRITICAL LAB VALUE RECEIVED PLT 19. UP FROM YESTERDAYS 16. MD AWARE.
[2017-02-15 05:24] LABS: ALBUMIN 2.8 g/dL (3.4-5.0); ANION GAP 16.9 mmol/L (8-16); BILIRUBIN - TOTAL 0.76 mg/dL (0.2-1.3); CALCIUM 8.4 mg/dL (8.5-10.1); CARBON DIOXIDE 22.6 mmol/L (21.0-32.0); CREATININE - SERUM 1.8 mg/dL (0.6-1.3); POTASSIUM - SERUM 3.5 mmol/L (3.5-5.1); PROTEIN - SERUM 6.6 g/dL (6.4-8.2)
--- NOTE | 2017-02-15 07:45 | NUR ---
PATIENT'S LEFT ARM IS SWOLLEN. IV TO LEFT AC NOT GIVING BLOOD RETURN. TURNED OFF IVF.
--- NOTE | 2017-02-15 08:49 | NUR ---
PATIENT IS SHAKING, PATIENT STATED SHE IS VERY NERVOUS ABOUT GETTING A MIDLINE, SHE IS NERVOUS AT THE THROUGH OF BEING STUCK. PATIENT IS REQUESTING ATIVAN.
--- NOTE | 2017-02-15 11:15 | NUR ---
NOTIFIED YADIRA JOHNSON OF POSITIVE BLOOD CULTURES.
--- NOTE | 2017-02-15 12:00 | NUR ---
SCDS ARE NOT ON DUE TO PLATELET COUNT.
[2017-02-15 12:27] LABS: PATH REVIEW PERIPHERAL SMEAR REVIEWED
--- NOTE | 2017-02-15 13:08 | NUR ---
Patient Name: DOC THORNTON Admission Status: Urgent Accout number: [id number] Admission Date: 02-14-2017 : 1950 Admission Diagnosis: Attending: SABRINA Current LOS: 1 Anticipated DC Date: 02-17-2017 Planned Disposition: Home with Home Health Primary Insurance: MEDICARE A & B Discharge Planning Comments: CM met with patient and son (Alvarado Thornton) who she lives with to assess discharge planning needs. Patient currently lives in [place] with her Son and had [facility] 2x a week who she is happy with . Patient has walker, shower chair, cpap at home. Patient plans to return home with her hilario and to continue HH with [facility]. CM will continue to follow and assist as needed with discharge planning/needs. PCP: [facility]: [facility] [place] (son) [phone] [facility] Fire Investigator: Argenis Ferris * Is the patient Alert and Oriented? Yes 0 * How many steps to enter\exit or inside your home? 3 0 * PCP [facility] 0 * [facility] 0 * Preadmission Environment Home with Family 0 * ADLs Partial Dependent 0 * Partial ADLs (Assistance needed) Medication Management 0 * Equipment Cane CPAP Elevated [place] Seat Shower Chair Walker 0 * List name and contact numbers for known caregivers / representatives who currently or will assist patient after discharge: ALVARADO THORNTON [phone] 0 * Community resources currently utilized Home Health 0 * Please name any agencies selected above. [facility] 0 * Additional services required to return to the preadmission environment? Yes 0 * Can the patient safely return to the preadmission environment? Yes 0 * Has this patient been hospitalized within the prior 30 days at any hospital? Yes 0 Grand Total: 0
--- NOTE | 2017-02-15 14:34 | NUR ---
NO BM COLLECTED DUE TO PATIENT NOT HAVING A BOWEL MOVEMENT
[2017-02-16] VITALS (19 sets, daily range): BP systolic 102–124; BP diastolic 57–73
--- NOTE | 2017-02-16 02:06 | NUR ---
NO SCD'S ON DUE TO LOW PLATELET COUNT
[2017-02-16 06:27] LABS: BASOPHILS 3.7 % (0-2); EOSINOPHILS 2.1 % (0-7); HEMATOCRIT 20.6 % (36.0-48.0); HEMOGLOBIN 6.5 g/dL (12-16); IMMATURE GRANULOCYTES 16.6 % (0-5); LYMPHOCYTES 38.2 % (15-50); MCH 29.3 pg (26.0-34.0); MCHC 31.6 g/dL (31.0-37.0); MCV 92.8 fL (80.0-100.0); MEAN PLATELET VOLUME 9.7 fL (7.4-10.4); MONOCYTES 9.1 % (2-11); NEUTROPHILS 30.3 % (40-80); PLATELET COUNT 57 10x3/uL (130-400); RBC 2.22 10x6/uL (4.00-5.40); RDW 20.1 % (11.5-14.5); WBC 23.7 10x3/uL (4.8-10.8)
[2017-02-16 06:31] LABS: ALBUMIN 2.4 g/dL (3.4-5.0); ANION GAP 13.1 mmol/L (8-16); BILIRUBIN - TOTAL 1.1 mg/dL (0.2-1.3); CALCIUM 8.4 mg/dL (8.5-10.1); CARBON DIOXIDE 22.1 mmol/L (21.0-32.0); POTASSIUM - SERUM 3.2 mmol/L (3.5-5.1); PROTEIN - SERUM 6.4 g/dL (6.4-8.2)
[2017-02-16 06:32] LABS: CREATININE - SERUM 1.3 mg/dL (0.6-1.3)
--- NOTE | 2017-02-16 14:00 | NUR ---
ANOTHER NURSE ASSISTED PATIENT TO THE BATHROOM, PATIENT HAD A BOWEL MOVEMENT, NURSE DID NOT KNOW ABOUT THE STOOL SAMPLE UNCOLLECTED, SO SHE FLUSHED THE STOOL. WILL HANG UP A SIGN IN ROOM SAYING:NEED STOOL SAMPLE.
--- NOTE | 2017-02-16 17:21 | NUR ---
OT NOTE: PT COMPLETED BUE AROM EXS FOR INCREASED AX TOLERANCE. PT COMPLETED BED MOB WITH MOD A. THANK YOU, ENRIQUE BAIN/Liza
--- NOTE | 2017-02-16 18:07 | NUR ---
STARTED SECOND UNIT OF PRBC.
--- NOTE | 2017-02-16 20:19 | NUR ---
PATIENT RESING IN BED WITH BLOOD TRANSFUSING. NO SIGNS OF DISTRESS AND PATIENT DENIES NEEDS AT THIS TIME. BED IN LOWEST POSITION AND CALL LIGHT WITHIN REACH. ENCOURAGED THE PATIENT TO CALL IF SHE HAS NEEDS.
[2017-02-17 04:00] VITALS: BP 123/70
[2017-02-17 04:11] LABS: BASOPHILS 3.8 % (0-2); HEMATOCRIT 28.1 % (36.0-48.0); HEMOGLOBIN 9.3 g/dL (12-16); IMMATURE GRANULOCYTES 17.3 % (0-5); LYMPHOCYTES 36.1 % (15-50); MCH 30.3 pg (26.0-34.0); MCHC 33.1 g/dL (31.0-37.0); MCV 91.5 fL (80.0-100.0); MEAN PLATELET VOLUME 9.8 fL (7.4-10.4); MONOCYTES 8.2 % (2-11); NEUTROPHILS 32.6 % (40-80); RBC 3.07 10x6/uL (4.00-5.40); RDW 18.8 % (11.5-14.5); WBC 22.4 10x3/uL (4.8-10.8)
[2017-02-17 04:12] LABS: PLATELET COUNT 34 10x3/uL (130-400)
[2017-02-17 04:24] LABS: ALBUMIN 2.4 g/dL (3.4-5.0); ANION GAP 15.4 mmol/L (8-16); BILIRUBIN - TOTAL 0.77 mg/dL (0.2-1.3); CALCIUM 8.6 mg/dL (8.5-10.1); CARBON DIOXIDE 21.7 mmol/L (21.0-32.0); CREATININE - SERUM 1.2 mg/dL (0.6-1.3); POTASSIUM - SERUM 3.1 mmol/L (3.5-5.1); PROTEIN - SERUM 6.4 g/dL (6.4-8.2); VANCOMYCIN - TROUGH 24.2 ug/mL (10.0-20.0)
--- NOTE | 2017-02-17 05:08 | NUR ---
PAGED DR. HALEY IN REGARDS TO CRITICAL PLATELET COUNT OF 34. WAITING FOR DR. HALEY TO CALL BACK.
--- NOTE | 2017-02-17 05:10 | NUR ---
DR. HALEY RETURNED PAGE. I NOTIFIED HER THAT THE PATIENT HAS A CRITICAL PLATELET COUNT OF 34.
--- NOTE | 2017-02-17 07:55 | NUR ---
PT AOX4 RESP EVEN AND NONLABORED PT DENIES NEEDS AT THIS TIME IV IN RIGHT UPPER ARM PATENT AND INTACT. SRX2 BED AT LOWEST SETTING CALL LIGHT WITHIN REACH WILL CONTINUE TO MONITOR
[2017-02-17 08:08] VITALS: BP 125/69
[2017-02-17 12:25] VITALS: BP 117/82
--- NOTE | 2017-02-17 12:34 | NUR ---
NUTRITION MONITORING & EVAL CHART REVIEWED, PT VISIT. TOLERATING REG DIET, PT REPORTS APPETITE AND PO INTAKE MUCH IMPROVED. RD FOLLOWING
[2017-02-17 16:59] VITALS: BP 114/78
--- NOTE | 2017-02-17 17:22 | NUR ---
OT NOTE: PT COMPLETED LUE AAROM AND POSITIONING TO DECREASE EDEMA. PT COMPLETED RUE AROM EXS FOR INCREASED AX TOLERANCE. THANK YOU, ENRIQUE BAIN/Liza
--- NOTE | 2017-02-17 19:50 | NUR ---
LYING IN BED TALKING WITH VISITOR, ASSESSMENT COMPLETED, NO ACUTE DISTRESS NOTED, R MIDLINE IV INFUSING, SR'S UP, BED LOW, CL IN REACH, WILL MONITOR
[2017-02-17 20:00] VITALS: BP 120/63
--- NOTE | 2017-02-17 20:33 | NUR ---
DR ORELLANA FROM RADIOLOGY CALLED TO INFORM THAT PT HAS A 1 CM ACUTE/SUB ACUTE BLEED IN BRAIN AND WAS UNABLE TO CONTACT DR RODARTE, THIS NURSE CALLED DR RODARTE AND INFORMED HIM OF FINDINGS, NO ORDERS RECIEVED
--- NOTE | 2017-02-17 21:27 | NUR ---
MEDS GIVEN PER MAR, GARY WELL, DENIES NEEDS, VISITOR IN ROOM, FALL PRECAUTIONS IN PLACE, CL IN REACH
--- NOTE | 2017-02-17 23:39 | NUR ---
RESTING WITH EYES CLOSED, RESP WITH EASE, NO DISTRESS NOTED, VISITOR IN ROOM, FALL PRECAUTIONS IN PLACE, CL IN REACH
[2017-02-18] VITALS (9 sets, daily range): BP systolic 107–134; BP diastolic 59–78
[2017-02-18 06:10] LABS: BASOPHILS 3.4 % (0-2); EOSINOPHILS 2.3 % (0-7); HEMOGLOBIN 8.9 g/dL (12-16); IMMATURE GRANULOCYTES 17.9 % (0-5); LYMPHOCYTES 33.7 % (15-50); MCH 30.5 pg (26.0-34.0); MCV 92.5 fL (80.0-100.0); MEAN PLATELET VOLUME 10.4 fL (7.4-10.4); MONOCYTES 8.5 % (2-11); NEUTROPHILS 34.2 % (40-80); PLATELET COUNT 70 10x3/uL (130-400); RBC 2.92 10x6/uL (4.00-5.40); RDW 19.8 % (11.5-14.5); WBC 20.2 10x3/uL (4.8-10.8)
[2017-02-18 06:25] LABS: ALBUMIN 2.4 g/dL (3.4-5.0); BILIRUBIN - TOTAL 0.6 mg/dL (0.2-1.3); CALCIUM 8.2 mg/dL (8.5-10.1); CREATININE - SERUM 1.2 mg/dL (0.6-1.3); PROTEIN - SERUM 6.3 g/dL (6.4-8.2)
--- NOTE | 2017-02-18 07:25 | NUR ---
PATIENT RECEIVED ALERT IN LOW TOBIN POSITION. RESPIRATIONS EVEN AND UNLABORED. FAMILY AT BEDSIDE. DENIES NEEDS. SIDE RAILS UP X2. BED IN LOW POSITION. CALL LIGHT IN REACH.
--- NOTE | 2017-02-18 08:27 | NUR ---
ALERT IN HIGH TOBIN POSITION. NO SIGNS OF DISTRESS NOTED. SCHEDULED MEDICATION ADMINISTERED. DENIES NEEDS. SIDE RAILS UP X2. BED IN LOW POSITION. CALL LIGHT IN REACH.
--- NOTE | 2017-02-18 10:27 | NUR ---
ALERT IN BED WITH FAMILY PRESENT. NO SIGNS OF DISTRESS NOTED. LAST KCL RIDER PER PROTOCOL DENIES NEEDS. SIDE RAILS UP X2. BED IN LOW POSITION. CALL LIGHT IN REACH. SCDS ON BILATERALLY.
--- NOTE | 2017-02-18 11:59 | NUR ---
PATIENT SITTING UP IN CHAIR ALERT. PRE MEDICATION FOR PLATELET TRANSFUSION GIVEN. DENIES NEEDS. CALL LIGHT IN REACH. FAMILY PRESENT.
--- NOTE | 2017-02-18 12:45 | NUR ---
PLT TRANSFUSION INITIATED PER ORDERS. VITAL SIGNS STABLE. CALL LIGHT IN REACH. FAMILY PRESENT. WILL CONTINUE TO MONITOR.
--- NOTE | 2017-02-18 13:05 | NUR ---
PLT TRANSFUSION COMPLETE. VITAL SIGNS STABLE. CALL LIGHT IN REACH. DENIES NEEDS.
--- NOTE | 2017-02-18 16:05 | NUR ---
POTASSIUM 3.3 KCL RIDER 10 MEQ INITIATED PER PROTOCOL. DENIES NEEDS. SIDE RAILS UP X2. BED IN LOW POSITION. CALL LIGHT IN REACH.
--- NOTE | 2017-02-18 19:50 | NUR ---
SITTING UP IN BED TALKING WITH VISITOR, ASSESSMENT COMPLETED, NO DISTRESS NOTED, DENIES PAIN OR NEEDS AT THIS TIME, SR'S UP, CL IN REACH, WILL MONITOR
--- NOTE | 2017-02-18 21:10 | NUR ---
CONTINUES TO TALK WITH VISITOR, DENIES NEEDS, CL IN REACH
--- NOTE | 2017-02-18 23:13 | NUR ---
PRN ATIVAN GIVEN PER REQUEST, GARY WELL, VISITOR IN ROOM, FALL PRECAUTIONS IN PLACE, CL IN REACH
[2017-02-19] VITALS: BP 114/68
--- NOTE | 2017-02-19 01:39 | NUR ---
RESTING WITH EYES CLOSED, RESP WITH EASE, NO DISTRESS NOTED, VISITOR IN ROOM, CL IN REACH
[2017-02-19 04:00] VITALS: BP 133/68
[2017-02-19 06:51] LABS: BASOPHILS 2.4 % (0-2); EOSINOPHILS 2.5 % (0-7); HEMATOCRIT 26.2 % (36.0-48.0); HEMOGLOBIN 8.5 g/dL (12-16); IMMATURE GRANULOCYTES 17.6 % (0-5); LYMPHOCYTES 30.8 % (15-50); MCH 30.2 pg (26.0-34.0); MCHC 32.4 g/dL (31.0-37.0); MCV 93.2 fL (80.0-100.0); MEAN PLATELET VOLUME 10.5 fL (7.4-10.4); MONOCYTES 7.7 % (2-11); PLATELET COUNT 111 10x3/uL (130-400); RBC 2.81 10x6/uL (4.00-5.40); RDW 20.8 % (11.5-14.5); WBC 19.9 10x3/uL (4.8-10.8)
[2017-02-19 07:02] LABS: ALBUMIN 2.3 g/dL (3.4-5.0); ANION GAP 15.1 mmol/L (8-16); BILIRUBIN - TOTAL 0.65 mg/dL (0.2-1.3); CALCIUM 8.3 mg/dL (8.5-10.1); CARBON DIOXIDE 21.3 mmol/L (21.0-32.0); POTASSIUM - SERUM 3.4 mmol/L (3.5-5.1); PROTEIN - SERUM 6.3 g/dL (6.4-8.2)
--- NOTE | 2017-02-19 07:20 | NUR ---
PATIENT RECEIVED IN MID TOBIN POSITION RESTING WITH EYES CLOSED. RESPIRATIONS EVEN AND UNLABORED. FAMILY AT BEDSIDE. SIDE RAILS UP X2. BED IN LOW POSITION. CALL LIGHT IN REACH.
--- NOTE | 2017-02-19 07:44 | CN ---
PATIENT NAME:DOC MONZON MEDICAL RECORD: [id number] : 48 LOCATION:[facility] ADMIT DATE: 02/14/17 ACCOUNT: [id number] CONSULTING PHYSICIAN: CHARLES ARANA MD REFERRING PHYSICIAN: KALEB LIMON M.D. DATE OF CONSULTATION: 02/18/2017 Surgical Consultation SURGEON: Charles Arana MD. CHIEF COMPLAINT: Breast cancer. HISTORY OF PRESENT ILLNESS: A 66-year-old female, who was admitted to the hospital 4 days ago with syncope, tachycardia, thrombocytopenia, fever and GI bleeding. Today, the patient has no complaints. She is sitting in her chair, eating lunch. She has got metastatic breast cancer and stage IV metastatic breast cancer and is slated to start urgent chemotherapy. The patient has no central IV access. Her only complaint currently is headaches and dizziness. She is scheduled for an MRI later today. PAST MEDICAL HISTORY: Hypertension, sleep apnea, metastatic breast cancer, anxiety. ALLERGIES: AMOXICILLIN, AUGMENTIN, PENICILLIN. PAST SURGICAL HISTORY: Prior lumpectomy. HOME MEDICATIONS: Include triamterene, hydrochlorothiazide, fluoxetine, vitamin C, vitamin D, Ativan. FAMILY HISTORY: Cardiovascular disease and lung disease in her parents. SOCIAL HISTORY: She denies any history of alcohol use or smoking. REVIEW OF SYSTEMS: A 12-point review of systems was obtained. Pertinent positive and negative as per the HPI. PHYSICAL EXAMINATION: VITAL SIGNS: Temperature 96, heart rate 83, respirations 18, blood pressure 134/76, satting 95% on room air. GENERAL: This is a well-developed and well-nourished female in no acute distress. PSYCHIATRIC: She is alert and oriented times 3. EYES: Extraocular muscles are intact. EAR, NOSE, AND THROAT: Normal dentition. NECK: Supple. CARDIOVASCULAR: Normal sinus rhythm. LUNGS: Clear auscultation bilaterally. ABDOMEN: Soft, nontender, and nondistended. SKIN: Warm, dry with normal turgor. EXTREMITIES: She has got 2+ pulses. No peripheral edema. NEUROLOGIC: She has a GCS of 15 with no focal deficits. IMAGING: CTA of the neck reviewed, which shows right carotid artery tortuosity. CONSULT REPORT [id number] DOC MONZON MRI of the brain shows subdural hematoma. IMPRESSION: A 66-year-old female with metastatic breast cancer and subdural hematoma. We will schedule the patient for an outpatient port placement next week, on Tuesday. Risks and benefits of the procedure were discussed with the patient and her son, who was present for the interview at the bedside. Case was discussed with Dr. Wray. The patient is okay for discharge from a surgical standpoint. Her port placement has been arranged. TRANSINT:[id number] Voice Confirmation ID: [id number] DOCUMENT ID: [id number] CHARLES ARANA MD at 0744 CC: [id number] DICTATION DATE: 02/18/17 1233 SOFTWARE VERIFICATION ENGINEER: 02/18/17 2153 ADM IN [place] [id number] [place] [id number]
--- NOTE | 2017-02-19 08:33 | NUR ---
PATIENT ALERT IN BED. NO SIGNS OF DISTRESS NOTED. SCHEDULED MEDICATION ADMINISTERED. SIDE RAILS UP X2. BED IN LOW POSITION. CALL LIGHT IN REACH. FAMILY PRESENT.
[2017-02-19 08:38] VITALS: BP 130/82
--- NOTE | 2017-02-19 11:35 | NUR ---
ALERT IN BED. NO SIGNS OF DISTRESS NOTED. FAMILY PRESENT. C/O HEADACHE 10/22. TYLENOL PER PRN ORDER. SIDE RAILS UP X2. BED IN LOW POSITION. CALL LIGHT IN REACH.
[2017-02-19 12:13] VITALS: BP 144/82
--- NOTE | 2017-02-19 13:00 | NUR ---
UP AMBULATING IN HALLWAY WITH PT. NO SIGNS OF DISTRESS NOTED.
--- NOTE | 2017-02-19 14:00 | NUR ---
PATIENT IN MID TOBIN POSITION RESTING WITH EYES CLOSED. RESPIRATIONS EVEN AND UNLABORED. SIDE RAILS UP X2. BED IN LOW POSITION. CALL LIGHT IN REACH.
--- NOTE | 2017-02-19 17:00 | NUR ---
ALERT IN BED WITH FAMILY PRESENT. NO SIGNS OF DISTRESS NOTED. DENIES NEEDS. SIDE RAILS UP X2. BED IN LOW POSITION. CALL LIGHT IN REACH.
[2017-02-19 18:49] VITALS: BP 132/78
--- NOTE | 2017-02-19 19:50 | NUR ---
PT SITTING UP IN BED TALKING WITH SON, ASSESSMENT COMPLETED, NO DISTRESS NOTED, DENIES PAIN OR NEEDS, SR'S UP, CL IN REACH, WILL MONITOR
[2017-02-19 20:00] VITALS: BP 124/74
--- NOTE | 2017-02-19 21:19 | NUR ---
PRN ATIVAN GIVEN PER REQUEST ALONG WITH SCHEDULED PROZAC, GARY WELL, DENIES NEEDS, CPAP IN PLACE, SON AT BEDSIDE, SR'S UP, CL IN REACH
--- NOTE | 2017-02-19 23:33 | NUR ---
RESTING WITH EYES CLOSED, CPAP IN PLACE, NO DISTRESS NOTED, FALL PRECAUTIONS IN PLACE, CL IN REACH
[2017-02-20] VITALS: BP 130/75
--- NOTE | 2017-02-20 03:00 | NUR ---
IV FLUIDS EMPTY, REPLACED PER MAR, RESTING WITH EYES CLOSED, CL IN REACH
[2017-02-20 04:00] VITALS: BP 131/74
[2017-02-20 05:06] LABS: BASOPHILS 2.3 % (0-2); EOSINOPHILS 2.1 % (0-7); HEMATOCRIT 26.1 % (36.0-48.0); HEMOGLOBIN 8.3 g/dL (12-16); IMMATURE GRANULOCYTES 16.9 % (0-5); LYMPHOCYTES 31.2 % (15-50); MCH 30.2 pg (26.0-34.0); MCHC 31.8 g/dL (31.0-37.0); MCV 94.9 fL (80.0-100.0); MEAN PLATELET VOLUME 10.1 fL (7.4-10.4); MONOCYTES 8.2 % (2-11); NEUTROPHILS 39.3 % (40-80); RBC 2.75 10x6/uL (4.00-5.40); RDW 21.5 % (11.5-14.5); WBC 19.1 10x3/uL (4.8-10.8)
[2017-02-20 05:15] LABS: PLATELET COUNT 87 10x3/uL (130-400)
[2017-02-20 05:27] LABS: ANION GAP 16.1 mmol/L (8-16); CALCIUM 8.5 mg/dL (8.5-10.1); CARBON DIOXIDE 19.5 mmol/L (21.0-32.0); CREATININE - SERUM 0.9 mg/dL (0.6-1.3); POTASSIUM - SERUM 3.6 mmol/L (3.5-5.1)
[2017-02-20] MEDS ORDERED: HYDROCODON-ACE1 EAC7 PO (06:00)
[2017-02-20 07:50] VITALS: BP 139/83
--- NOTE | 2017-02-20 08:35 | NUR ---
ALERT IN BED EATING BREAKFAST. TOLERATING WELL. SCHEDULED MEDICATION ADMINISTERED. SIDE RAILS UP X2. BED IN LOW POSITION. CALL LIGHT IN REACH. DENIES NEEDS. ANTICIPATING D/C
--- NOTE | 2017-02-20 09:00 | NUR ---
MIDLINE TO RIGHT UPPER ARM. 16CM IN LENGTH. TIP INTACT. SITE COVERED WITH GAUZE AND BANDAID.WELL TOLERATED.
--- NOTE | 2017-02-20 09:20 | NUR ---
D/C TEACHING AND PAPER PRESCRIPTION GIVEN TO PATIENT. STATES UNDERSTANDING. DENIES QUESTIONS. D/C HOME WITH SON. TRANSFERRED DOWNSTAIRS VIA WHEELCHAIR.
[2017-02-22 03:08] LABS: OVA + PARASITE EXAM Final report (())
== END 2017-02-20 09:21 | disposition home health service (06) | DRG 312 ==
LOC: D.MS 14:39
PROVIDERS: Emergency Medicine; Family Medicine; Student in an Organized Health Care Education/Training Program; ADMIT Family Medicine
DX: I95.2 Hypotension due to drugs (principal); S06.5X0A Traumatic subdural hemorrhage without loss of consciousness, initial encounter; E87.1 Hypo-osmolality and hyponatremia; C79.51 Secondary malignant neoplasm of bone; K92.1 Melena; T45.1X5A Adverse effect of antineoplastic and immunosuppressive drugs, initial encounter; E87.6 Hypokalemia; D64.9 Anemia, unspecified; I10 Essential (primary) hypertension; W19.XXXA Unspecified fall, initial encounter; D69.6 Thrombocytopenia, unspecified; R00.0 Tachycardia, unspecified

== ENCOUNTER 2017-02-23 07:42 | Day surgery (SDC) | payer MEDICARE, OTHER ==
[~2017-02-23] VITALS: Ht 157.5 cm; Wt 76.2 kg
[~2017-02-23 07:42] MED LIST changes: +ATIVAN0.5 MG PO; +HYDROCODON-ACE1 EAC7 PO; +VITAMIN C250 MG PO; +VITAMIN D31000 UNI2 PO
[2017-02-23 08:24] VITALS: BP 157/92; Ht 157.5 cm; Wt 76.2 kg
[2017-02-23 09:43] LABS: BASOPHILS 2.7 % (0-2); EOSINOPHILS 1.9 % (0-7); HEMATOCRIT 30.2 % (36.0-48.0); HEMOGLOBIN 9.8 g/dL (12-16); IMMATURE GRANULOCYTES 11.3 % (0-5); LYMPHOCYTES 32.3 % (15-50); MCH 30.3 pg (26.0-34.0); MCHC 32.5 g/dL (31.0-37.0); MCV 93.5 fL (80.0-100.0); MEAN PLATELET VOLUME 9.8 fL (7.4-10.4); MONOCYTES 6.7 % (2-11); NEUTROPHILS 45.1 % (40-80); RBC 3.23 10x6/uL (4.00-5.40); WBC 22.3 10x3/uL (4.8-10.8)
[2017-02-23 09:44] LABS: PLATELET COUNT 49 10x3/uL (130-400)
[2017-02-23 09:55] LABS: ANION GAP 17.2 mmol/L (8-16); CALCIUM 8.8 mg/dL (8.5-10.1); POTASSIUM - SERUM 5.2 mmol/L (3.5-5.1)
[2017-02-23 10:00] LABS: INR 1.12 (0.85-1.17); PROTIME 14.3 SECONDS (11.6-15.0)
[2017-02-23] MEDS ORDERED: HYDROCODON-ACE1 EAC7 PO (11:53)
--- NOTE | 2017-02-23 13:36 | NUR ---
CAROLYNE IN READING ROOM STATES XRAY IS FINE, NO PNEUMO. DISCHARGED HOME VIA WC.
--- NOTE | 2017-02-23 23:13 | OP ---
PATIENT NAME: DOC MONZON MEDICAL RECORD: [id number] :48 LOCATION:[facility] ADMISSION DATE: SURGEON: CHARLES ARANA MD DATE OF OPERATION: 02/23/2017 SURGEON: Charles Arana MD PREOPERATIVE DIAGNOSIS: Metastatic breast cancer. POSTOPERATIVE DIAGNOSIS: Metastatic breast cancer. PROCEDURE PERFORMED: 1. Insertion of left subclavian central venous access device with subcutaneous port. 2. Immediate interpretation fluoroscopy. ANESTHESIA: General. COMPLICATIONS: None. SPECIMENS: None. Case was clean. ESTIMATED BLOOD LOSS: 5 cc. OPERATIVE COURSE: After consent was obtained, the patient was taken to the operating room and placed in the supine position on the operating table. Next, general anesthesia was given via endotracheal intubation after timeout was performed to confirm the correct patient and procedure. A 30 cc of anesthetic were used in the left chest wall. The left subclavian vein was cannulated on the first pass. The guidewire was advanced through the needle under fluoroscopy. It was advanced to the atriocaval junction. The needle was removed. At this time, a skin incision was made with a 15 blade scalpel. Dissection continued to the level of the pectoralis fascia using electrocautery. The pocket was created with a combination of blunt dissection and electrocautery. The tunneling device was then used to tunnel the catheter from the skin incision to the needle stick site. Under fluoroscopy, the dilator and breakaway sheath were advanced over the wire. The dilator and wire were removed. The catheter was advanced through the breakaway sheath to the atriocaval junction. Under fluoroscopy, the breakaway sheath was removed. The port was accessed. Blood was aspirated, it was then flushed with 30 mL of saline. It was secured to the pectoralis fascia using interrupted 2-0 Prolene suture. Subcutaneous tissue was closed with 3-0 Vicryl suture. The skin was closed with 4-0 Monocryl, Mastisol and Steri-Strips. The port was then accessed through the skin. Blood was aspirated. It was again flushed with 30 cc of saline. A sterile Tegaderm dressing was placed over the access device. At the end of the case, all needle and instrument counts were correct. No complications occurred. The patient was extubated and transferred to the PACU in stable condition. TRANSINT:[id number] Voice Confirmation ID: [id number] DOCUMENT ID: [id number] OPERATIVE REPORT [id number] DOC MONZON,CHARLES Espinoza MD at 2313 CC: [id number] DICTATION DATE: 02/23/17 115 KEYPUNCHER: 02/23/171948 [facility] 02/23/17 [place] [id number] [place] [id number]
== END 2017-02-23 13:36 | disposition home or self-care (01) ==
LOC: D.OPS 07:42 → D.PAN 10:00 → D.OPS 13:36
PROVIDERS: Anesthesiology
DX: C50.919 Malignant neoplasm of unspecified site of unspecified female breast (principal); C79.9 Secondary malignant neoplasm of unspecified site

== ENCOUNTER 2017-02-24 11:07 | Outpatient (CLI) | payer MEDICARE, OTHER ==
[~2017-02-24] VITALS: Ht 157.5 cm; Wt 83.6 kg
--- NOTE | 2017-02-24 11:58 | NUR ---
1150 PT ARRIVED VIA W/C/ HERE FOR PLATELETS. PORT LEFT ALREADY ACCESSED BLOOD OBTAINED. CONSENT SIGNED FOR PLATELETS AND EXPLAINED S/S OF BLOOD REACTIONS.
[2017-02-24 12:00] VITALS: Ht 157.5 cm; Wt 83.6 kg
--- NOTE | 2017-02-24 12:55 | NUR ---
PLATELETS STARTED WITH NS AND BLOOD TUBING THROUGH PORT. REGULAR LUNCH TRAY SERVED.
--- NOTE | 2017-02-24 13:55 | NUR ---
PLATELETS COMPLETED. LINE FLUSHED WITH NS.
--- NOTE | 2017-02-24 17:18 | NUR ---
1505--PORT FLUSHED AND DC'D. LAUREN RANGEL 1515--DISCHARGE INSTRUCTIONS GIVEN, PT VERBALIZES UNDERSTANDING. PT OFF UNIT VIA WC. LAUREN RANGEL
== END 2017-02-24 15:15 | disposition home or self-care (01) ==
LOC: D.OPS 11:07
DX: D69.6 Thrombocytopenia, unspecified (principal)

== ENCOUNTER 2017-03-08 10:33 | Outpatient (CLI) | payer MEDICARE, OTHER ==
[~2017-03-08] VITALS: Ht 157.5 cm; Wt 77.3 kg
[2017-03-08 11:54] VITALS: Ht 157.5 cm; Wt 77.3 kg
== END 2017-03-08 14:30 | disposition home or self-care (01) ==
LOC: D.OPS 10:33
DX: D69.6 Thrombocytopenia, unspecified (principal); C79.81 Secondary malignant neoplasm of breast

== ENCOUNTER 2017-03-10 11:20 | Outpatient (CLI) | payer MEDICARE, OTHER ==
[2017-03-10 13:05] VITALS: BP 117/65; Ht 157.5 cm
--- NOTE | 2017-03-10 13:06 | NUR ---
1235-NOTED PORT ACCESSED FROM OFFICE PRIOR TO ADMIT TO OUTPATIENT WITH ONLY PAPER TAPE COVERING. REMOVED WITH STERILE TECHNIQUE USED TO PROVIDE CENTRAL LINE/SITE CARE WITH OCCLUSIVE DRESSING. NORMAL SALINE INITIATED VIA PUMP AT KVO RATE. REGULAR LUNCH TRAY OFFERED.
--- NOTE | 2017-03-10 13:10 | NUR ---
PRBC'S STARTED TO LEFT INFUSAPORT WITH NS AND BLOOD TUBING. UNIT # IS [id number]. SON AT BEDSIDE.
--- NOTE | 2017-03-10 13:40 | NUR ---
PRBC'S INFUSING WITHOUT SIGNS OF REACTION, RATE INCREASED TO 150ML/HR VIA PUMP.
== END 2017-03-10 17:30 | disposition home or self-care (01) ==
LOC: D.OPS 11:20
DX: Z85.3 Personal history of malignant neoplasm of breast (principal)

== ENCOUNTER 2017-03-17 08:27 | Outpatient (CLI) | payer MEDICARE, OTHER ==
[~2017-03-17] VITALS: Ht 158.8 cm; Wt 77.3 kg
[2017-03-17 09:21] VITALS: BP 135/74; Ht 158.8 cm; Wt 77.3 kg
--- NOTE | 2017-03-17 09:29 | NUR ---
0905 BLOOD OBTAINED FROM PORT ALREADY ACCESSED LEFT CHEST FROM DR. BAHENA OFFICE. DRESSING C/D/I. BLOOD WITHDREW AND WAISTED FOR TYPE AND SCREEN. EXPLAINED S/S OF BLOOD REACTIONS. ALREADY ATE BREAKFAST. ICE WATER SERVED.
--- NOTE | 2017-03-17 09:53 | NUR ---
0945 REPORT TO RYLAN ELLIS R.N.
--- NOTE | 2017-03-17 10:27 | NUR ---
1020- PLATELETS TRANSFUSING. PT RESTING COMFORTABLY WITH FAMILY AT BEDSIDE. VSS, SEE RECORD. WILL MONITOR
--- NOTE | 2017-03-17 11:14 | NUR ---
1105- PLATELET TRANSFUSION COMPLETE. VSS, SEE RECORD. PT WILL REMAIN FOR 1 HOUR POST TRANSFUSION. WILL CONTINUE TO MONITOR. FAMILY CONTINUES TO BE AT BEDSIDE.
--- NOTE | 2017-03-17 12:50 | NUR ---
PORT FLUSHED WITH SALINE AND HEPARIN, THEN DEACCESSED. PT TOLERATED. DISCHARGE INSTRUCTIONS COMPLETED, PAPERWORK SIGNED. D/C'D VIA WHEELCHAIR WITH DAUGHTER.
== END 2017-03-17 12:50 | disposition home or self-care (01) ==
LOC: D.OPS 08:27
DX: D69.6 Thrombocytopenia, unspecified (principal)

== ENCOUNTER 2017-03-24 12:54 | Outpatient (CLI) | payer MEDICARE, OTHER ==
[~2017-03-24] VITALS: Ht 158.8 cm; Wt 76.8 kg
[2017-03-24 14:51] VITALS: BP 133/78; Ht 158.8 cm; Wt 76.8 kg
--- NOTE | 2017-03-24 16:28 | NUR ---
1615 discharge instructions given. pt discharged with son.
== END 2017-03-24 16:15 ==
LOC: D.OPS 12:54
DX: D69.6 Thrombocytopenia, unspecified (principal)

== ENCOUNTER 2017-04-01 10:22 | Outpatient (CLI) | payer MEDICARE, OTHER ==
[~2017-04-01] VITALS: Ht 158.8 cm; Wt 77.3 kg
[2017-04-01 11:01] VITALS: BP 123/60; Ht 158.8 cm; Wt 77.3 kg
--- NOTE | 2017-04-01 11:38 | NUR ---
1133 EXPLAINED S/S OF BLOOD REACTIONS.PLATELETS CHECKED BY 2 R.N.S. IV VIA LEFT PORT NO REDNESS OR SWELLING. REPORT FROM IZAIAH CAMPBELL. TRAY SERVED. DENIES ANY NEEDS.
--- NOTE | 2017-04-01 12:37 | NUR ---
1143 AT BEDSIDE NO S/S OGF BLOOD REACTIONS NOTED. TOLERATED LUNCH.
--- NOTE | 2017-04-01 12:38 | NUR ---
1200 LLEFT PORT NO REDNESS OR SWELLING PLATELETS INFUSING NO S/S OF BLOOD REACTIONS NOTED.
--- NOTE | 2017-04-01 12:39 | NUR ---
1220 PLATELETS COMPLETE AND FLUSHING WITH SALINE.
--- NOTE | 2017-04-01 12:49 | NUR ---
1247 PORT FLUSHED WITH SALINE AND HEPARIN FLUSH.
--- NOTE | 2017-04-01 13:45 | NUR ---
1300 PORT DCD GAY NEEDLE CATHETER INTACT. BANDAID APPLIED. NO S/S OF BLOOD REACTIONS NOTED.
--- NOTE | 2017-04-01 13:47 | NUR ---
1320 TO HOME VIA W/C WITH FAMILY. NO S/S OF BLOOD REACTIONS REVIEWED BLOOD TRANSFUSION REACTION SHEET.
== END 2017-04-01 13:20 | disposition home or self-care (01) ==
LOC: D.OPS 10:22
DX: D69.6 Thrombocytopenia, unspecified (principal)

== ENCOUNTER 2017-04-05 09:34 | Outpatient (CLI) | payer MEDICARE, OTHER ==
[~2017-04-05] VITALS: Ht 158.8 cm; Wt 77.7 kg
[2017-04-05 10:17] VITALS: Ht 158.8 cm; Wt 77.7 kg
--- NOTE | 2017-04-05 10:51 | NUR ---
1000 PT CAME WITH PORT ACCESSED FROM HOME, HAD ACCESSED YESTERDAY FROM DR. BAHENA' OFFICE. BLOOD FOR PLATLETS AND BLOOD TXM DRAWN FROM PORT CONNECTED TO NS PER MAR, EASY PULL, FLUSHED EASILY. ASSESSMENT DONE, LUNCH ORDERED. 1045 LUNCH SERVED.
--- NOTE | 2017-04-05 17:55 | NUR ---
PATIENT WITHOUT SIGNS OR SYMPTOMS OF TRANSFUSION REACTION, PORT FLUSHED WITH 20 ML SALINE
== END 2017-04-05 15:55 | disposition home or self-care (01) ==
LOC: D.OPS 09:34
DX: D64.9 Anemia, unspecified (principal)

== ENCOUNTER 2017-04-11 12:16 | Outpatient (CLI) | payer MEDICARE, OTHER ==
[~2017-04-11] VITALS: Ht 157.5 cm; Wt 78.2 kg
[2017-04-11 14:04] VITALS: BP 128/71; Ht 157.5 cm; Wt 78.2 kg
--- NOTE | 2017-04-11 14:57 | NUR ---
PT RESTING COMFORTABLY. LUNCH TOLERATED. SON AT BEDSIDE. VSS, SEE RECORD. PLATELET TRANSFUSION ALMOST COMPLETE. WILL CONTINUE TO MONITOR.
--- NOTE | 2017-04-11 16:00 | NUR ---
PATIENT LYING IN BED, AWAKE, DENIES COMPLAINTS, NO SIGNS OR SYMPTOMS OF TRANSFUSION REACTION. LEFT CHEST PORT FLUSHED WITH HEPARIN AND GAY NEEDLE DC'D. PATIENT DISCHARGED HOME AMBULATORY WITH SON TO [facility]
== END 2017-04-11 16:04 | disposition home or self-care (01) ==
LOC: D.OPS 12:16
DX: D69.6 Thrombocytopenia, unspecified (principal)

== ENCOUNTER 2017-04-15 10:16 | Outpatient (CLI) | payer MEDICARE, OTHER ==
[~2017-04-15] VITALS: Ht 157.5 cm; Wt 77.3 kg
[2017-04-15 12:49] VITALS: BP 120/71; Ht 157.5 cm; Wt 77.3 kg
--- NOTE | 2017-04-15 12:55 | NUR ---
1220 PATIENT GAME FOR PLATELETS. PORT ALREADY ACCESSED LEFT CHEST SALE LOCK,DRESSING C/D/I. EXPLAINED S/S OF BLOOD REACTIONS AND SIGNED BLOOD CONSENT.1240 PLATELETS CHECKED AND 2 RNS CHECKED PLATELETS STARTED AND PATIENT WAS PREMEDICATED WITH TYLENOL AND BENADRYL.
--- NOTE | 2017-04-15 12:56 | NUR ---
1255 AT BEDSIDE PLATELETS INFUSING NO S/S OF BLOOD REACTIONS NOTED.
--- NOTE | 2017-04-15 13:56 | NUR ---
1325 PLATELETS COMPLETE AND FLUSHED WITH SALINE.
--- NOTE | 2017-04-15 13:56 | NUR ---
1300 TOERATING PLATELETS. EATING LUNCH.
--- NOTE | 2017-04-15 14:10 | NUR ---
1401 SALINE AND HEPARIN FLUSHED PORT. GAY NEEDLE NEEDLE INTACT.
--- NOTE | 2017-04-15 14:12 | NUR ---
1413 WENT OVER DISCHARGE INSTRUCTIONS AND VERBALLY UNDERSTANDS. NO S/S OF BLOOD REACTION NOTED.
--- NOTE | 2017-04-15 15:35 | NUR ---
1425 TO HOME VIA W/C WITH FAMILY.
== END 2017-04-15 14:35 | disposition home or self-care (01) ==
LOC: D.OPS 10:16
DX: D69.6 Thrombocytopenia, unspecified (principal)

== ENCOUNTER 2017-04-18 12:19 | Outpatient (CLI) | payer MEDICARE, OTHER ==
[~2017-04-18] VITALS: Ht 157.5 cm; Wt 77.7 kg
[2017-04-18] MEDS ORDERED: ALEVE220 MG PO (14:47)
[2017-04-18 14:50] VITALS: Ht 157.5 cm; Wt 77.7 kg
--- NOTE | 2017-04-18 16:38 | NUR ---
UNIT PRBC'S FINISHED INFUSING, LINE FLUSHED, UNIT PLATELETS STARTED ON NEW TUBING. PATIENT DENIES COMPLAINTS OR SYMPTOMS
== END 2017-04-18 18:05 | disposition home or self-care (01) ==
LOC: D.OPS 12:19
DX: D64.9 Anemia, unspecified (principal); D69.6 Thrombocytopenia, unspecified

== ENCOUNTER 2017-04-25 10:29 | Outpatient (CLI) | payer MEDICARE, OTHER ==
[~2017-04-25] VITALS: Ht 157.5 cm; Wt 77.3 kg
[~2017-04-25 10:29] MED LIST changes: +ALEVE220 MG PO
[2017-04-25 11:55] VITALS: BP 121/70; Ht 157.5 cm; Wt 77.3 kg
--- NOTE | 2017-04-25 14:02 | NUR ---
PLATELET APHERESIS COMPLETED WITHOUT DIFFICULTY. INFUSAPORT DEACCESSSED. VSS. PT DISCHARGED VIA WHEELCHAIR WITH SON.
== END 2017-04-25 13:55 | disposition home or self-care (01) ==
LOC: D.OPS 10:29
DX: D64.9 Anemia, unspecified (principal)

== ENCOUNTER 2017-05-03 10:22 | Outpatient (CLI) | payer MEDICARE, OTHER ==
[2017-05-03 12:13] VITALS: Ht 157.5 cm
--- NOTE | 2017-05-03 13:50 | NUR ---
PATIENT WITHOUT SIGNS OR SYMPTOMS OF TRANSFUSION REACTION, POST TRANSFUSION INSTRUCTIONS REVIEWED WITH PATIENT AND SON, LEFT CHEST PORT FLUSHED PER EMAR AND DC'D. PATIENT DISCHARGED HOME VIA WHEELCHAIR WITH SON
== END 2017-05-03 13:55 | disposition home or self-care (01) ==
LOC: D.OPS 10:22
DX: D64.9 Anemia, unspecified (principal)

== ENCOUNTER → 2017-05-09 10:14 | Outpatient (CLI) | payer MEDICARE, OTHER ==
[~2017-05-09] VITALS: Ht 157.5 cm; Wt 75.0 kg
[2017-05-09 14:45] VITALS: BP 115/71; Ht 157.5 cm; Wt 75.0 kg
--- NOTE | 2017-05-09 18:04 | NUR ---
1635 REPORT FROM Chris HOOVER IV HAS BEEN D-ACCESSED. PLATLETS HAVE BEEN COMPLETED, 1650 DENIES PROBLEMS, RELEASED IN WC.
== END | disposition home or self-care (01) ==
LOC: D.OPS 10:00
DX: C79.51 Secondary malignant neoplasm of bone (principal); D69.6 Thrombocytopenia, unspecified

== ENCOUNTER 2017-05-12 10:53 | Outpatient (CLI) | payer MEDICARE, OTHER ==
[~2017-05-12] VITALS: Ht 157.5 cm; Wt 75.0 kg
[2017-05-12 14:14] VITALS: BP 126/71; Ht 157.5 cm; Wt 75.0 kg
--- NOTE | 2017-05-12 17:37 | NUR ---
1700 PORT FLUSHED PER PROTOCOL,AND NEEDLE REMOVED
== END 2017-05-12 17:30 | disposition home or self-care (01) ==
LOC: D.OPS 10:53
DX: D64.9 Anemia, unspecified (principal)

== ENCOUNTER 2017-05-17 10:59 | Outpatient (CLI) | payer MEDICARE, OTHER ==
--- NOTE | 2017-05-17 17:00 | NUR ---
PATIENT SITTING ON SIDE OF BED, NO SIGNS OR SYMPTOMS OF TRANSFUSION REACTION. PORT FLUSHED PER PROTOCOL, PORT DEACCESSED. PATIENT DISCHARGED HOME VIA WHEELCHAIR WITH SON
== END 2017-05-17 17:02 | disposition home or self-care (01) ==
LOC: D.OPS 10:59
DX: D69.6 Thrombocytopenia, unspecified (principal); D64.81 Anemia due to antineoplastic chemotherapy